=== PATIENT | female | born 1955 | race Hispanic/Latino ===

== ENCOUNTER 2024-03-23 14:55 | Outpatient (CLI) | payer OTHER | END 2024-03-23 14:56 | disposition home or self-care (01) | LOC: CSHMAMMO 14:55 | PROVIDERS: ATTEND Family Medicine | DX: Z12.31 Encounter for screening mammogram for malignant neoplasm of breast (principal) | CPT/HCPCS: 77063; 77067 ==

== ENCOUNTER 2024-11-17 14:58 | Outpatient (CLI) | payer OTHER | END 2024-11-17 14:59 | disposition home or self-care (01) | LOC: CSHMAMMO 14:58 | PROVIDERS: ATTEND Family Medicine | DX: Z78.0 Asymptomatic menopausal state (principal); M81.0 Age-related osteoporosis without current pathological fracture | CPT/HCPCS: 77080 ==